=== PATIENT | female | born 1960 | race Caucasian/White ===

== ENCOUNTER 2018-07-05 19:29 | Emergency (ER) | payer OTHER ==
[~2018-07-05] VITALS: Ht 167.6 cm; Wt 81.8 kg
[~2018-07-05 19:29] MED LIST: AMOXICILLIN 8751 TAB PO; HCTZ 25MG TAB25 MG PO; MIRALAX PA17 GM/Dose PO; NASONEX SPRAY17 GM NS; PROZAC 20MG20 MG PO; SYNTHROID0.088 MG/T PO; VITAMIN D32000 I1 PO
[2018-07-05 19:33] VITALS: BP 161/84; TEMP 97.2
[2018-07-05] MEDS ORDERED: AMOXICILLIN 8751 TAB PO (20:47)
[2018-07-05 21:05] VITALS: PULSE 71
== END 2018-07-05 21:05 | disposition home or self-care (01) ==
LOC: COL.ER 19:29
DX: S61.412A Laceration without foreign body of left hand, initial encounter (principal); J45.909 Unspecified asthma, uncomplicated; I10 Essential (primary) hypertension; Z23 Encounter for immunization; W54.0XXA Bitten by dog, initial encounter; Y92.009 Unspecified place in unspecified non-institutional (private) residence as the place of occurrence of the external cause

== ENCOUNTER 2018-07-12 11:48 | Emergency (ER) | payer OTHER ==
[2018-07-12 12:09] VITALS: BP 144/84; PULSE 62; TEMP 97.2
== END 2018-07-12 12:19 | disposition home or self-care (01) ==
LOC: COL.ER 11:48
DX: S61.412D Laceration without foreign body of left hand, subsequent encounter (principal); X58.XXXD Exposure to other specified factors, subsequent encounter